=== PATIENT | male | born 1950 | race Caucasian/White ===

== ENCOUNTER 2016-08-12 17:56 | Emergency (ER) | payer MEDICAID ==
[~2016-08-12] VITALS: Ht 157.5 cm; Wt 56.8 kg
[2016-08-12 17:58] VITALS: Ht 157.5 cm; Wt 56.8 kg
--- NOTE | 2016-08-12 21:33 | ERA ---
ER Documentation Chief Complaint Date/Time DATE: 08/12/16 TIME: 21:33 Chief Complaint Right inguinal hernia pain HPI The patient is a 65-year-old male, presenting with right inguinal pain for more than 6 weeks intermittently, the symptoms only happen when he stands up. When he lays down he has no problem or pain or discomfort. He was seen by his physician last week. He denies fever, chills, neck pain, chest pain, dyspnea, upper abdominal pain, vomiting, dysuria, diarrhea, constipation. He does not smoke nor drink Past medical history: Parkinson disease, BPH Past surgical history: None ROS All systems reviewed and are negative except as per history of present illness. Physical Exam Vitals Vital Signs Date Time Temp Pulse Resp B/P Pulse Ox O2 Delivery O2 Flow Rate FiO2 08/12/16 17:58 98.6 77 18 137/71 99 Physical Exam Const: No acute distress. Head: Atraumatic. Eyes: Normal Conjunctiva. ENT: Normal External Ears, Nose and Mouth. Neck: Full range of motion. No meningismus. Resp: Clear to auscultation bilaterally. Cardio: Regular rate and rhythm, no murmurs. Abd: Soft, non distended, normal bowel sounds, non tender. Small reducible right inguinal hernia only when he stands up Skin: No petechiae or rashes. Back: No midline or flank tenderness. Ext: No cyanosis, or edema. Neur: Awake and alert. No focal deficit Psych: Normal Mood and Affect. Procedures/MDM MEDICAL MAKING DECISION: The patient is a 65-year-old male, presenting with small, obvious reducible right inguinal hernia. He is stable for outpatient follow-up. The differential diagnoses considered include but are not limited to incarcerated/strangulated inguinal hernia, cholelithiasis, cholecystitis, cystitis, pancreatitis, hepatitis, gastritis, peptic ulcer disease, gastric ulcer, appendicitis, diverticulitis, cholangitis, choledocholithiasis, partial small bowel obstruction. Departure Diagnosis: Primary Impression: Right inguinal hernia Condition: Good Comments I discussed the findings with the patient. I advised the patient to follow-up with the primary physician in about 1-2 days for referral to general surgery for elective hernia repair, sooner if needed and return if any concern. The patient's blood pressure was elevated (>120/80) but appears stable without evidence of hypertension emergency or urgency. The patient was counseled about the risks of hypertension and urged to pursue outpatient monitoring and therapy within a week with their primary care physician. ABIGAIL RODRÍGUEZ MD Aug 12, 2016 21:33
[2016-08-12 21:57] VITALS: BP 128/78; PULSE 78; RESP 18; TEMP 98
[2016-08-12] MEDS ORDERED: CARB1TAB45 PO (21:59)
[2016-08-12] MEDS ORDERED: ART2 PO (22:00)
[2016-08-12] MEDS ORDERED: DOCU250C58 PO (22:00)
[2016-08-12] MEDS ORDERED: TAMS0.4C2 PO (22:01)
== END 2016-08-12 22:04 | disposition home or self-care (01) ==
LOC: E/R 17:56
DX: K40.90 Unilateral inguinal hernia, without obstruction or gangrene, not specified as recurrent (principal)
CPT/HCPCS: 99282